=== PATIENT | male | born 1945 | race Caucasian/White ===

== ENCOUNTER → 2025-04-17 10:46 | Outpatient (BNVA) | payer MEDICARE, SELFPAY | PROVIDERS: Visit Provider Surgery | DX: Z12.11 Encounter for screening for malignant neoplasm of colon (principal) | CPT/HCPCS: 99204 ==

== ENCOUNTER 2025-05-01 09:09 | Outpatient (CLI) | payer MEDICARE, SELFPAY ==
--- NOTE | 2025-05-01 10:00 | FL_ITS ---
WS: [id number] FL barium swallow modifd [id number] REASON FOR EXAM: Difficulty swallowing FLUOROSCOPY TIME: 4min 5.330100dhd # OF SPOT FILMS: 0 TECHNIQUE: Examination was supervised by the speech therapy department. Patient was examined in the sitting upright lateral projection. The swallowing of barium of multiple consistencies was fluoroscopically monitored and video recorded. FINDINGS: No aspiration or laryngeal vestibule penetration. There is significant impingement of the passage of the barium tablet through the distal esophagus into the stomach. In part this appears to be due to the hiatal hernia and tertiary contractions however the possibility of benign or neoplastic stricture needs to be further evaluated with a formal esophagram. FL/FL barium swallow modifd [id number] IMPRESSION: A detailed report of the swallowing will be rendered by the speech therapy depa rtment. A formal esophagram is recommended as above.
== END 2025-05-01 09:10 | disposition home or self-care (01) ==
LOC: RAD 09:10
PROVIDERS: PCP Family Medicine; Visit Provider Surgery
DX: R13.10 Dysphagia, unspecified (principal); K44.9 Diaphragmatic hernia without obstruction or gangrene
CPT/HCPCS: 74230; 92611

== ENCOUNTER 2025-05-17 09:05 | Day surgery (SDC) | payer MEDICARE, SELFPAY ==
[2025-05-17 09:29] VITALS: BP 133/82; PULSE 69; RESP 16; TEMP 36.4; O2SAT 100; BMI 25.1
--- NOTE | 2025-05-17 10:02 | P.HPUD_ITS ---
Surgery/Procedure H&P Update DATE OF PROCEDURE: May 17, 2025 DATE H&P PERFORMED: 04/17/25 H&P UPDATE INFORMATION: I have reviewed H&P completed within last 30 days, I have examined patient prior to procedure, No changes to prior documentation, H&P is in [facility] EMR on date indicated and Risks and benefits of the procedure reviewed PLANNED PROCEDURE: Operation Date: 05/17/25 11:00 Proposed Procedures p EGD Dilation W/ Balloon [id number] G0121 Z12.11 R13.10(Not Applicable) - Thomas Jones MD s Colonoscopy(Not Applicable) - Thomas Jones MD
--- NOTE | 2025-05-17 11:27 | ANES.PREANE2 ---
Pre-Anesthetic Assessment Height/Weight: Height 1.78 m Weight 79.379 kg Temp Pulse Resp BP Pulse Ox O2 Del Method 97.6 F 69 16 133/82 100 Room Air 05/17/25 09:29 05/17/25 09:29 05/17/25 09:29 05/17/25 09:29 05/17/25 09:29 05/17/25 09:29 Operation Date: 05/17/25 11:00 Proposed Procedures p EGD Dilation W/ Balloon [id number] G0121 Z12.11 R13.10(Not Applicable) - Thomas Jones MD s Colonoscopy(Not Applicable) - Thomas Jones MD Familial anesthetic complications: none Last intake: Intake Last Liquid Date 05/16/25 Last Liquid Time 19:00 Last Solid Date 05/15/25 Last Solid Time 18:00 Social No alcohol and No tobacco Exam alert, oriented x 3, clear to auscultation bilaterally and regular rate & rhythm Airway Submandibular: within normal limits Cervical ROM: within normal limits Mallampati: Class III History/ROS No significant history except as noted Pulmonary None reported CV/HEM Hypertension Chronic Renal Failure Hepatic Cirrhosis and None reported GI Gastroesophageal Reflux Disease Metabolic Diabetes Mellitus [facility] None reported Neuropsych None reported Anesthetic Plan ASA status: 3 Anesthesia: MAC Risk of > 500 ml blood loss (7ml/kg in children): No Medications/Allergies Home Medications ?Medication ?Instructions ?Recorded ?Confirmed ?Last Taken ?Type dapagliflozin propanediol [Farxiga] 10 mg PO DAILY 04/17/25 05/15/25 05/16/25 History levothyroxine 50 mcg tablet 50 mcg PO DAILY 04/17/25 05/15/25 05/16/25 History lisinopril 2.5 mg tablet 2.5 mg PO DAILY 04/17/25 05/15/25 05/16/25 History ondansetron 8 mg disintegrating 8 mg PO Q8H PRN nausea and 04/17/25 05/15/25 05/16/25 Rx tablet vomiting #3 tabs tamsulosin 0.4 mg capsule 0.4 mg PO DAILY 04/17/25 05/15/25 05/16/25 History Allergies Allergy/AdvReac Type Severity Reaction Status Date / Time polyethylene glycol 3350 Allergy ALGY-Rash Verified 05/17/25 09:37 (From Miralax) Current Medications Generic Name Dose Route Start Last Admin Trade Name Freq PRN Reason Stop Dose Admin Sodium Chloride 1,000 mls @ 15 mls/hr 05/17/25 09:13 05/17/25 09:50 Sodium Chloride 0.9% IV 05/18/25 09:12 15 mls/hr .Q24H PRN Administration COLONOSCOPY FLUIDS PFSH Anesthesia Social History Smoking and tobacco/nicotine status: never used tobacco/nicotine
--- NOTE | 2025-05-17 12:18 | SUR.OPER ---
cecum time [id number]
[2025-05-17 12:24] VITALS: BP 100/61; PULSE 61; RESP 12; TEMP 36.1; O2SAT 95
[2025-05-17 12:39] VITALS: BP 134/60; PULSE 61; RESP 18; O2SAT 98
[2025-05-17 12:49] VITALS: BP 142/77; PULSE 57; RESP 18; TEMP 36.1; O2SAT 100
--- NOTE | 2025-05-17 15:31 | ANE.PACU2 ---
Inpatient post-anesthesia follow up: Airway intact: Yes Vital signs: Temperature 97.0 F Pulse Rate 57 Respiratory Rate 18 Blood Pressure 142/77 Pulse Oximetry 100 Oxygen Delivery Me thod Room Air Oxygen Flow Rate Fraction of Inspir ed Oxygen Hydration adequate: Yes Nausea and vomiting: No Pain level: 1 Mental status: Baseline
== END 2025-05-17 13:15 | disposition home or self-care (01) ==
PROVIDERS: PCP Family Medicine; Visit Provider Surgery
PROC: 0DJD8ZZ Inspection of Lower Intestinal Tract, Via Natural or Artificial Opening Endoscopic (ICD-10-PCS; CPT 45378; 2025-05-17 11:00)
DX: Z12.11 Encounter for screening for malignant neoplasm of colon (principal); D12.6 Benign neoplasm of colon, unspecified; D12.0 Benign neoplasm of cecum; K29.30 Chronic superficial gastritis without bleeding; K31.7 Polyp of stomach and duodenum; K22.10 Ulcer of esophagus without bleeding; E11.22 Type 2 diabetes mellitus with diabetic chronic kidney disease; I12.9 Hypertensive chronic kidney disease with stage 1 through stage 4 chronic kidney disease, or unspecified chronic kidney disease; N18.9 Chronic kidney disease, unspecified; K74.60 Unspecified cirrhosis of liver; K21.9 Gastro-esophageal reflux disease without esophagitis
CPT/HCPCS: 36416; 43239; 45380; 82962; 88305; 88312; 88342; J2704; J7030

== ENCOUNTER → 2025-06-06 08:40 | Outpatient (BNVA) | payer MEDICARE, SELFPAY | PROVIDERS: PCP Family Medicine; Visit Provider Surgery | DX: Z09 Encounter for follow-up examination after completed treatment for conditions other than malignant neoplasm (principal) | CPT/HCPCS: 99213 ==